=== PATIENT | female | born 1955 | race Caucasian/White ===

== ENCOUNTER → 2024-12-31 | Outpatient (REF) | payer MEDICARE ==
[~2024-12-31] MED LIST: HYDROCHLOROTHIA25 MG PO; LISINOPRIL10 MG PO; VITAMIN D31250 MCG PO
[2024-12-31 10:15] LABS: BASOPHILS % 0.4 % (0.0-1.0); EOSINOPHILS % 2.3 % (0.0-6.0); LYMPHOCYTES % 35.4 % (18.0-39.1); MONOCYTES % 11.8 % (4.4-11.3); NEUTROPHILS % 48.8 % (38.7-80.0); RED CELL DISTRIBUTION WIDTH 12.6 % (11.7-14.4)
== END ==
LOC: RAD 09:00 → EDSTATUS 01-09 08:30
PROVIDERS: ATTEND Internal Medicine Gastroenterology
DX: Z01.810 Encounter for preprocedural cardiovascular examination (principal); Z01.812 Encounter for preprocedural laboratory examination; Z86.0100 Personal history of colon polyps, unspecified; R14.0 Abdominal distension (gaseous)
CPT/HCPCS: 36415; 85025; 93005